=== PATIENT | female | born 2000 | race Caucasian/White ===

== ENCOUNTER 2023-01-09 22:14 | Emergency (ER) | payer OTHER ==
[~2023-01-09] VITALS: Ht 172.7 cm; Wt 81.6 kg
[2023-01-10 11:56] VITALS: BP 119/75; O2SAT 98
== END 2023-01-10 12:29 | disposition home or self-care (01) ==
LOC: ER 22:18
DX: F10.129 Alcohol abuse with intoxication, unspecified (principal); Y90.9 Presence of alcohol in blood, level not specified

== ENCOUNTER 2025-01-24 15:52 | Emergency (ER) | payer OTHER ==
[~2025-01-24] VITALS: Ht 175.3 cm; Wt 79.4 kg
[2025-01-24 16:08] VITALS: BP 131/77; TEMP 98
[2025-01-24] MEDS ORDERED: ESCI10TA PO (16:34)
[2025-01-24] MEDS ORDERED: ESCI20TA PO (16:34)
[2025-01-24] MEDS ORDERED: FOLI0.8T3 PO (16:34)
[2025-01-24] MEDS ORDERED: THIA100T70 PO (16:34)
[2025-01-24] MEDS ORDERED: DIVA-78 PO (16:34)
[2025-01-24] MEDS ORDERED: ARIP5TAB59 PO (16:34)
[2025-01-24 16:51] VITALS: O2SAT 99
== END 2025-01-24 16:52 | disposition home or self-care (01) ==
LOC: ER 15:52
DX: F60.3 Borderline personality disorder (principal); Z76.0 Encounter for issue of repeat prescription; Z79.899 Other long term (current) drug therapy